=== PATIENT | male | born 1940 | race Caucasian/White ===

== ENCOUNTER 2019-06-13 07:20 | Day surgery (SDC) | payer BC, OTHER ==
[2019-06-12 14:51] VITALS: BMI 23.1
[2019-06-13 09:40] VITALS: TEMP 98
[2019-06-13 10:42] VITALS: BP 169/69; PULSE 71
--- NOTE | 2019-06-15 19:02 | PATH ---
Surgical Pathology Report Patient Name: EMMA AUSTIN [facility]. Rec. #: [id number] /Age/Gender: 1940 (Age: 79) / M Account: [id number] Location: [facility]-ENDOSCOPY Taken: 06/13/2019 Received: 06/13/2019 Reported: 06/15/2019 Physicians: Ellie Contreras M.D. Specimen(s) Received A: RIGHT COLON POLYP B: HOT SNARE AND BX Clinical History History of colon polyps Postoperative diagnosis: Colon polyps Final Diagnosis A. RIGHT COLON POLYPS, POLYPECTOMY: TUBULAR ADENOMA. SEPARATE FRAGMENTS OF COLONIC MUCOSA WITH FOCAL REACTIVE LYMPHOID AGGREGATE. B. SIGMOID COLON POLYPS, POLYPECTOMY: TUBULAR ADENOMA, ONE FRAGMENT. HYPERPLASTIC POLYP, ONE FRAGMENT. Electronically Signed Jonas Etienne M.D. Gross Description A. Received in formalin, labeled "right colon polyps biopsy" are 2 almonte, irregular portions of soft tissue averaging 0.4 cm. in greatest dimension. The specimens are submitted in toto in one cassette. B. Received in formalin, labeled "sigmoid colon polyps biopsy" are 3 almonte, irregular portions of soft tissue ranging from 0.2-0.4 cm. in greatest dimension. The specimens are submitted in toto in one cassette. 06/13/2019 [place]06/13/2019
== END 2019-06-13 10:40 | disposition home or self-care (01) ==
LOC: JASU-ENDO 07:20
PROVIDERS: ATTEND Internal Medicine Gastroenterology
PROC: 0DBK8ZX Excision of Ascending Colon, Via Natural or Artificial Opening Endoscopic, Diagnostic (ICD-10-PCS; 2019-06-13)
PROC: 0DBN8ZX Excision of Sigmoid Colon, Via Natural or Artificial Opening Endoscopic, Diagnostic (ICD-10-PCS; principal; 2019-06-13 08:45)
DX: Z12.11 Encounter for screening for malignant neoplasm of colon (principal); Z86.010 Personal history of colon polyps; D12.2 Benign neoplasm of ascending colon; D12.5 Benign neoplasm of sigmoid colon; K57.30 Diverticulosis of large intestine without perforation or abscess without bleeding
CPT/HCPCS: 88305-TC

== ENCOUNTER 2020-02-22 04:52 | Day surgery (SDC) | payer OTHER ==
[2020-02-22 08:14] VITALS: BMI 23.2
[2020-02-22 09:35] VITALS: TEMP 97.8
[2020-02-22 10:57] VITALS: BP 200/91; PULSE 64
--- NOTE | 2020-02-25 17:24 | PATH ---
Surgical Pathology Report Patient Name: EMMA AUSTIN [facility]. Rec. #: [id number] /Age/Gender: 1940 (Age: 79) / M Account: [id number] Location: [facility]-ENDOSCOPY Taken: 02/22/2020 Received: 02/22/2020 Reported: 02/25/2020 Physicians: Ellie Contreras M.D. Specimen(s) Received A: SECOND PORTION DUODENUM AND DUODENAL BULB B: ANTRUM C: GE JUNCTION D: MID ESOPHAGUS E: SCHATZKI RING Clinical History Dysphagia, Schatzki's ring Postoperative diagnosis: Hiatal hernia, GERD with Schatzki's ring, antral gastritis Final Diagnosis A. DUODENUM, SECOND PORTION AND DUODENAL BULB, BIOPSY: DUODENAL MUCOSA WITHOUT SIGNIFICANT PATHOLOGIC FINDINGS. B. STOMACH, ANTRUM, BIOPSY: GASTRIC ANTRAL MUCOSA WITH MILD CHRONIC GASTRITIS AND FOCAL INTESTINAL METAPLASIA. NO DYSPLASIA IDENTIFIED. IMMUNOHISTOCHEMICAL STAIN FOR H. PYLORI IS NEGATIVE. C. GE JUNCTION, BIOPSY: SUPERFICIAL FRAGMENTS OF GASTRIC MUCOSA WITH MILD CHRONIC INFLAMMATION. NO HELICOBACTER-LIKE ORGANISMS IDENTIFIED. NO SQUAMOUS MUCOSA, INTESTINAL METAPLASIA, OR DYSPLASIA IDENTIFIED. D. MID ESOPHAGUS, BIOPSY: SQUAMOUS MUCOSA WITH CHANGES OF MILD REFLUX TYPE ESOPHAGITIS. E. SCHATZKI RING, BIOPSY: SQUAMOUS MUCOSA WITH CHANGES OF MILD REFLUX TYPE ESOPHAGITIS. Positive and negative controls (internal if applicable) show appropriate results. Electronically Signed Marianela Platt M.D. Gross Description A. Received in formalin, labeled "biopsy second portion of duodenum and duodenal bulb" are 3 almonte, irregular portions of soft tissue ranging from 0.2-0.4 cm. in greatest dimension. The specimens are submitted in toto in one cassette. B. Received in formalin, labeled "biopsy antrum" are 3 almonte, irregular portions of soft tissue ranging from 0.2-0.4 cm. in greatest dimension. The specimens are submitted in toto in one cassette. C. Received in formalin, labeled "biopsy GE junction" is a almonte, irregular portion of soft tissue measuring 0.3 cm. in greatest dimension. The specimen is submitted in toto in one cassette. D. Received in formalin, labeled "biopsy mid esophagus" are 2 almonte, irregular portions of soft tissue averaging 0.4 cm. in greatest dimension. The specimens are submitted in toto in one cassette. E. Received in formalin, labeled "biopsy Schatzki's ring" are 5 almonte, irregular portions of soft tissue ranging from 0.1-0.3 cm. in greatest dimension. The specimens are submitted in toto in one cassette. 02/22/2020 [facility]02/22/2020
== END 2020-02-22 10:57 | disposition home or self-care (01) ==
LOC: JASU-ENDO 04:52
PROVIDERS: ATTEND Internal Medicine Gastroenterology
PROC: 0DB68ZX Excision of Stomach, Via Natural or Artificial Opening Endoscopic, Diagnostic (ICD-10-PCS; 2020-02-22)
PROC: 0DB28ZX Excision of Middle Esophagus, Via Natural or Artificial Opening Endoscopic, Diagnostic (ICD-10-PCS; 2020-02-22)
PROC: 0DB38ZX Excision of Lower Esophagus, Via Natural or Artificial Opening Endoscopic, Diagnostic (ICD-10-PCS; 2020-02-22)
PROC: 0D738ZZ Dilation of Lower Esophagus, Via Natural or Artificial Opening Endoscopic (ICD-10-PCS; 2020-02-22)
PROC: 0DB98ZX Excision of Duodenum, Via Natural or Artificial Opening Endoscopic, Diagnostic (ICD-10-PCS; principal; 2020-02-22 09:00)
DX: K29.50 Unspecified chronic gastritis without bleeding (principal); K31.9 Disease of stomach and duodenum, unspecified; K21.9 Gastro-esophageal reflux disease without esophagitis; R13.10 Dysphagia, unspecified; I10 Essential (primary) hypertension; E78.5 Hyperlipidemia, unspecified; N40.0 Benign prostatic hyperplasia without lower urinary tract symptoms; K44.9 Diaphragmatic hernia without obstruction or gangrene; K22.2 Esophageal obstruction
CPT/HCPCS: 88305-TC; 88342-TC

== ENCOUNTER 2022-02-01 04:36 | Day surgery (SDC) | payer OTHER ==
[2022-01-27 16:15] VITALS: BMI 23.8
[2022-02-01 11:10] VITALS: TEMP 97.3
[2022-02-01 11:43] VITALS: PULSE 63
[2022-02-01 11:44] VITALS: BP 154/71
== END 2022-02-01 12:07 | disposition home or self-care (01) ==
LOC: JASU-ENDO 04:36
PROVIDERS: ATTEND Internal Medicine Gastroenterology
PROC: 0DBL8ZX Excision of Transverse Colon, Via Natural or Artificial Opening Endoscopic, Diagnostic (ICD-10-PCS; 2022-02-01)
PROC: 0DBN8ZX Excision of Sigmoid Colon, Via Natural or Artificial Opening Endoscopic, Diagnostic (ICD-10-PCS; 2022-02-01)
PROC: 0DBP8ZX Excision of Rectum, Via Natural or Artificial Opening Endoscopic, Diagnostic (ICD-10-PCS; 2022-02-01)
PROC: 0DBK8ZX Excision of Ascending Colon, Via Natural or Artificial Opening Endoscopic, Diagnostic (ICD-10-PCS; principal; 2022-02-01 11:00)
DX: Z12.11 Encounter for screening for malignant neoplasm of colon (principal); K62.1 Rectal polyp; D12.2 Benign neoplasm of ascending colon; D12.5 Benign neoplasm of sigmoid colon; D12.3 Benign neoplasm of transverse colon; K57.30 Diverticulosis of large intestine without perforation or abscess without bleeding; K64.8 Other hemorrhoids; Z86.010 Personal history of colon polyps
CPT/HCPCS: 88305-TC